=== PATIENT | female | born 1990 | race Hispanic/Latino ===

== ENCOUNTER 2018-02-11 16:35 | Inpatient (IN) | payer BC ==
[~2018-02-11 16:35] MED LIST: Dexamethasone 20 MG/5 ML VIAL ONE; Ondansetron HCl/PF 4 MG/2 ML Vial ONE; PHENYLEPHRINE-NS 100 MCG/ML 10 ML SYRINGE ONE; diphenhydrAMINE 50 MG/ML VIAL ONE; ePHEDrine/0.9% NaCl/PF SYRINGE 50 mg/10 ml ONE
[2018-02-11] MEDS ORDERED: Promethazine HCl 25 MG/ML VIAL IM PRN ×3 (17:38→23:39)
[2018-02-11] MEDS ORDERED: Ondansetron HCl/PF 4 MG/2 ML Vial IVP PRN ×4 (17:38→23:39)
[2018-02-11 17:51] LABS: Hemoglobin 12.1 g/dL (12.0-16.0); Mean Corpuscular HGB CONC 33.4 g/dL (32.0-36.0); Mean Corpuscular Hemoglobin 29.9 pg (27.0-31.0); Mean Corpuscular Volume 89.5 fL (78.0-98.0); Mean Platelet Volume 9.5 fL (7.4-10.4); Platelet Count 243 thou/uL (130-400); RBC Distribution Width 11.2 % (11.5-14.5); Red Blood Cell (RBC) Count 4.04 mill/uL (4.20-5.40); White Blood Cell (WBC) Count 9.9 thou/uL (4.8-10.8)
[2018-02-11] MEDS ORDERED: Bicitra 30 ML UDCUP PO SCH (18:00)
[2018-02-11] MEDS ORDERED: CEFAZOLIN/Water 2 GM/20 ML SYRINGE SLOW IVP SCH (18:00)
[2018-02-11 18:13] LABS: ALT (SGPT) 13 U/L (8-55); AST (SGOT) 20 U/L (5-34); Albumin 3.6 g/dL (3.5-5.0); Alkaline Phosphatase 158 U/L (40-150); Anion Gap 13 mmol/L (10-20); BUN (Urea Nitrogen) 10 mg/dL (7.0-18.7); Bilirubin, Total 0.3 mg/dL (0.2-1.2); Calc. Creatinine Clearance 0 mL/min (70-130); Calcium 9.2 mg/dL (7.8-10.44); Carbon Dioxide 20 mmol/L (22-29); Chloride 108 mmol/L (98-107); Estimated GFR-MDRD 90; Globulin 3.2 g/dL (2.4-3.5); Glucose 70 mg/dL (70-105); Potassium 3.9 mmol/L (3.5-5.1); Protein, Total 6.8 g/dL (6.0-8.3); Sodium 137 mmol/L (136-145)
[2018-02-11 18:17] VITALS: BMI 28.2
[2018-02-11 18:31] LABS: HBSAg Index 0.19 S/CO (0-0.99); Hep B Surf Ag Non-Reactive S/CO (NonReactive); Syphilis Antibody Nonreactive (Nonreactive); Syphilis Antibody Index 0.03 S/CO (<1.00 Non-Reactive)
[2018-02-11] MEDS ORDERED: Oxytocin 10 UNITS/ML VIAL ONE ×2 (18:40→18:42)
[2018-02-11] MEDS ORDERED: Morphine PF 1 MG/ML SYR ONE (18:41)
[2018-02-11] MEDS ORDERED: PHENYLEPHRINE-NS 100 MCG/ML 10 ML SYRINGE ONE (18:42)
[2018-02-11] MEDS ORDERED: Lidocaine 1% PF 5 ML VIAL ONE (18:42)
[2018-02-11] MEDS ORDERED: Dexamethasone 4 mg/ml Vial ONE (18:42)
[2018-02-11] MEDS ORDERED: diphenhydrAMINE 50 MG/ML VIAL ONE (18:42)
[2018-02-11] MEDS ORDERED: Bupivacaine 0.75% W/DEXTROSE 8.25% 2 ML AMP ONE (18:42)
[2018-02-11] MEDS ORDERED: Ondansetron HCl/PF 4 MG/2 ML Vial ONE (18:42)
[2018-02-11] MEDS ORDERED: Ketorolac Tromethamine 30 MG/ML VIAL ONE (18:42)
--- NOTE | 2018-02-11 19:25 | PDOC.LDHP ---
Labor and Delivery H&P Chief complaint: scheduled section, other HPI: 27 y/o at 39 weeks with GHTN and BREECH, now with 2+ protein in the clinic c/w mild preeclamsia. Patient has a vaginal septum and likely two cervical openings based on our best exam information and previous history. No dilated cervical opening is found today. Due to Breech presentation and Cervical findings, primary is chosen as the preferred method of delivery today by the patient. Current gestational age (weeks): 39 Grav: 1 Para: 0 Current complications: hypertension Abnormal US findings: Yes (Heavily Calcified Placenta today) Current medications: none Previous surgical history: none Allergies/Adverse Reactions: Allergies Allergy/AdvReac Type Severity Reaction Status Date / Time No Known Allergies Allergy Verified 02/11/18 17:10 Social history: none - Physical Exam Vital signs reviewed and normal: yes General: NAD Heart: RRR Lungs: CTAB Abdomen: gravid Extremeties: no edema FHT: category 1 - Vaginal Exam cm dilated: 0 Effacement: 50% Station: -3 - Assessment L&D Assessment: scheduled primary section - Plan Plan: admit to L&D, to OR for section
[2018-02-11] MEDS ORDERED: ePHEDrine/0.9% NaCl/PF SYRINGE 50 mg/10 ml ONE (19:39)
[2018-02-11] MEDS ORDERED: Naloxone HCl 0.4 mg/ml Vial IVP PRN ×2 (20:05)
[2018-02-11] MEDS ORDERED: Meperidine HCl/PF 25 MG/ML VIAL SLOW IVP PRN (20:05)
[2018-02-11] MEDS ORDERED: Naloxone HCl 0.4 mg/ml Vial IV PRN (20:05)
[2018-02-11] MEDS ORDERED: Ketorolac Tromethamine 30 MG/ML VIAL IVP PRN (20:05)
[2018-02-11] MEDS ORDERED: Promethazine HCl 25 MG SUPP PR PRN (20:05)
[2018-02-11] MEDS ORDERED: diphenhydrAMINE 50 MG/ML VIAL IVP PRN (20:05)
[2018-02-11] MEDS ORDERED: Eucerin (Mineral Oil/Petrolatum,White) 30 gm Jar TOP PRN (20:05)
[2018-02-11] MEDS ORDERED: HYDROmorphone 2 MG/ML VIAL SLOW IVP PRN (20:05)
[2018-02-11] MEDS ORDERED: Communication Order-Pharmacy FS SCH (20:15)
[2018-02-11] MEDS ORDERED: Misoprostol 200 MCG TAB PR PRN (23:39)
[2018-02-11] MEDS ORDERED: NS / Oxytocin 40 units/1000ml 1,000 ML IV SCH (23:39)
[2018-02-11] MEDS ORDERED: Lactated Ringer's 1,000 ML IV SCH (23:39)
[2018-02-11] MEDS ORDERED: Methylergonovine 0.2 MG/ML VIAL IM PRN (23:39)
[2018-02-11] MEDS ORDERED: diphenhydrAMINE 25 MG CAP PO PRN (23:39)
[2018-02-11] MEDS ORDERED: Bisacodyl 10 MG SUPP PR PRN (23:39)
[2018-02-11] MEDS ORDERED: Lanolin Ointment 7 GM TUBE TOP PRN (23:39)
[2018-02-11] MEDS ORDERED: Simethicone Chewable 80 MG TAB PO PRN (23:39)
[2018-02-11] MEDS ORDERED: HYDROcodone/Acetaminophen 5/325 mg Tablet PO PRN ×2 (23:39)
[2018-02-11] MEDS ORDERED: Zolpidem Tartrate 5 MG TAB PO PRN (23:39)
[2018-02-11] MEDS ORDERED: Docusate Calcium (SURFAK) 240 MG CAP PO SCH (23:45)
[2018-02-11] MEDS ORDERED: Ibuprofen 800 MG TAB PO SCH (23:59)
[2018-02-12] MEDS ORDERED: NIFEdipine XL 30 MG TAB PO SCH (00:15)
[2018-02-12 06:14] LABS: Hemoglobin 10.8 g/dL (12.0-16.0); Mean Corpuscular Volume 90.8 fL (78.0-98.0); Mean Platelet Volume 9.4 fL (7.4-10.4); Platelet Count 210 thou/uL (130-400); RBC Distribution Width 11.1 % (11.5-14.5); Red Blood Cell (RBC) Count 3.59 mill/uL (4.20-5.40); White Blood Cell (WBC) Count 14.3 thou/uL (4.8-10.8)
[2018-02-12] MEDS ORDERED: Varicella virus, LIVE 0.5 ML VIAL SC ONE (09:00)
[2018-02-12] MEDS ORDERED: Measles/Mumps/Rubella 10 MCG/0.5 ML VIAL SC ONE (09:00)
[2018-02-12] MEDS ORDERED: Adacel (T-DAP) 0.5 ML VIAL IM ONE (09:00)
[2018-02-12] MEDS: Docusate Calcium (SURFAK) 240 MG CAP PO SCH ×2 (09:42→22:23)
[2018-02-12] MEDS: NIFEdipine XL 30 MG TAB PO SCH (09:44)
--- NOTE | 2018-02-12 13:14 | PDOC.PP ---
Post Progress Note PO intake tolerated: yes Flatus: yes Ambulation: yes Vital Signs (12 hours) Temp Pulse Resp BP Pulse Ox 02/12/18 12:00 98.0 F 66 20 125/83 02/12/18 09:44 58 L 02/12/18 08:00 99.0 F 58 L 18 126/78 96 02/12/18 05:25 59 L 20 132/83 95 02/12/18 02:30 60 20 136/88 02/12/18 01:37 60 02/12/18 01:30 97.9 F 60 20 152/94 H 97 Weight Weight 175 lb - Physical Examination General: NAD Cardiovascular: no m/r/g Respiratory: clear to auscultation bilaterally Abdominal: + bowel sounds Extremities: negative homans (B) Skin: CS incision dry & intact Neurological: no gross focal deficits Psychiatric: A&Ox3 Result Diagrams: 02/12/18 05:48 02/11/18 17:38 Additional Labs: Post Labs Blood Type B POSITIVE 02/11/18 17:20 Hep Bs Antigen Non-Reactive S/CO (NonReactive) 02/11/18 17:38 - Assessment/Plan Patient is doing very well today post CD day1 now. On Procardia XL 30mg q day.
[2018-02-12] MEDS ORDERED: Sodium Chloride 0.9% 10 ML ONE (14:03)
[2018-02-12] MEDS: Ibuprofen 800 MG TAB PO SCH (22:23)
[2018-02-13] MEDS: Ibuprofen 800 MG TAB PO SCH ×3 (06:20→22:07)
[2018-02-13] MEDS: NIFEdipine XL 30 MG TAB PO SCH (09:21)
[2018-02-13] MEDS: Docusate Calcium (SURFAK) 240 MG CAP PO SCH ×2 (09:21→22:07)
[2018-02-14] MEDS: Ibuprofen 800 MG TAB PO SCH ×2 (06:12→14:08)
[2018-02-14 08:08] VITALS: BP 117/73; TEMP 97.8
[2018-02-14] MEDS: Docusate Calcium (SURFAK) 240 MG CAP PO SCH (09:42)
[2018-02-14] MEDS: NIFEdipine XL 30 MG TAB PO SCH (09:42)
--- NOTE | 2018-02-14 14:37 | OP ---
DATE OF SERVICE: 02/11/2018 PREOPERATIVE DIAGNOSES: Intrauterine at 39 weeks and 0 days with preeclampsia, breech pres entation and a history of a didelphys uterus. POSTOPERATIVE DIAGNOSES: Intrauterine at 39 weeks and 0 days with preeclampsia, breech pre sentation and a history of a didelphys uterus. PROCEDURES: 1. Primary section in breech presentation through Pfannenstiel skin incision. 2. Myomectomy. FINDINGS: Viable female weighing 2599 grams or 5 pounds 12 ounces. Apgars of 8 and 9. Quant itative blood loss at 904. COMPLICATIONS: None. DETAILS OF THE PROCEDURE: The patient was consented and taken back to the operating room where spina l anesthesia was found to be adequate. She was then prepped and draped in the normal sterile fashion . A time out was performed by the entire operative team. The incision was then marked with a marking pen tested using sharp pickups. An incision was then made with a scalpel. The incision was carried through the adipose tissue down to the underlying rectus fascia using both sharp dissection as well as cautery. Once the fascia was identified, it was incised in the midline and then the fascial incis ion was carried through in both lateral directions using sharp as well as cautery dissection techniqu es. Next, the superior aspect of the rectus fascia was grasped with 2 Gerardo clamps which was tented up and the rectus muscles were dissected off using blunt dissection as well as cautery dissection. Similarly, the inferior aspect of the fascial incision was grasped with 2 Gerardo clamps, tented up an d the rectus muscles were dissected off bluntly as well as sharply. Next, the rectus muscles were se parated in the midline and the peritoneum identified. The peritoneum was then carefully grasped with two hemostats and entered sharply. The peritoneal incision was extended superiorly and inferiorly a nd bladder blade was placed in the lower abdomen. At this point, the uterus was identified and the b ladder flap was then developed using pickups with teeth as well as Metzenbaum scissors in both latera l directions. The bladder flap was then dissected downwards using the lace paper machine operator's finger as well as M etzenbaum scissors. The bladder blade was replaced. The lower uterine segment was then identified a nd entered sharply using a clean scalpel. The uterine incision was then dissected downwards until th in layer of muscle remained and this was entered bluntly using a hemostat to avoid any injury to the baby. The uterine incision was then stretched using two fingers in both lateral directions. An amniotomy was performed artificially using a hemostat and the baby was delivered using fundal pres sure in a gentle fashion. Once out, the baby's mouth and nose were bulb suctioned, cord clamped and cut, and the baby was handed to waiting attendants. Next, the uterus was exteriorized, cleared of al l clots and debris and the uterine incision was repaired with #1 Monocryl in a running locking fashio n. A second suture of the same type was used to obtain complete hemostasis at the uterine incision. The bladder flap was reapproximated using 3-0 Monocryl. Next, patient's left and right adnexa were inspected and appeared to be within normal limits. The posterior cul-de-sac was blotted dry and hemo stasis assured. One more look at the uterine incision demonstrated hemostasis. Next, the uterus was replaced back within the abdomen. The peritoneum was reapproximated using 2-0 Monocryl without diff iculty. The rectus muscles were then allowed to come back together and 0 chromic was used to aid in reapproximation of the muscle as necessary. The rectus fascia was then reapproximated in a running f ashion using 0 Vicryl suture. The adipose tissue was then examined and appeared to be well approxima graciela without any obvious separations. Finally, the skin was reapproximated with 3-0 Monocryl on a Clemente th needle without difficulty and Dermabond adhesive was applied to the skin. Once the glue was dry, the drapes were removed and the patient was transferred to an ambulatory bed where she was taken to [facility] awake and in stable condition. Sponge, lap, and needle counts were correct x3. Following closure of the uterus, a thorough inspection was done of the patient's anatomy, which was q uite unusual. 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 The fallopian tube and infundibulopelvic ligament on the left were visualized, but no such structure s were seen on the right. The right horn appeared rudimentary with normal anatomy as expected for a bicornuate uterus. In this case, the patient is thought to have a didelphys uterus based on her othe r anatomy visualized vaginally. The left horn of the uterus was inspected and did have an abnormal s tructure towards its fundal anterior side, which may represent a fibroid. It appeared to be a large solid nodule below the serosal surface. This was completely excised and sent as a myomectomy specime n to pathology for further analysis. This area was sutured closed using a running interrupted 2-0 ch romic suture and then approximately an additional 8 interrupted [id number] sutures to obtain com plete hemostasis. No other fibroids or other lesions were noted. Both ovaries appeared normal. The left horn was then returned to the abdomen and surgery continued as above.
== END 2018-02-14 16:03 | disposition home or self-care (01) | DRG 766 ==
LOC: L&D 16:35 → 3SW 23:12
PROVIDERS: ADMIT Obstetrics & Gynecology; ATTEND Obstetrics & Gynecology
PROC: 10D00Z1 Extraction of Products of Conception, Low, Open Approach (ICD-10-PCS; principal; 2018-02-11)
PROC: 0UB90ZZ Excision of Uterus, Open Approach (ICD-10-PCS; 2018-02-11)
DX: O14.94 Unspecified pre-eclampsia, complicating childbirth (principal); O32.1XX0 Maternal care for breech presentation, not applicable or unspecified; Z3A.39 39 weeks gestation of pregnancy; Z37.0 Single live birth; O34.13 Maternal care for benign tumor of corpus uteri, third trimester; D25.9 Leiomyoma of uterus, unspecified
CPT/HCPCS: 36415; 51702; 80053; 81003; 85027; 86780; 86850; 86900; 86901; 87340; 88305; A4216; J1100; J1200; J1885; J2001; J2274; J2405; J2590; J3490

== ENCOUNTER 2019-06-10 15:52 | Outpatient (CLI) | payer BC | END 2019-06-10 15:53 | disposition home or self-care (01) | LOC: CTENTCT 15:52 | PROVIDERS: ATTEND Otolaryngology Plastic Surgery within the Head & Neck | DX: J32.9 Chronic sinusitis, unspecified (principal) | CPT/HCPCS: 70486 ==

== ENCOUNTER 2019-11-08 06:21 | Outpatient (CLI) | payer BC, OTHER ==
[2019-11-08 16:35] LABS: Hemoglobin 13.4 g/dL (12.0-16.0); Mean Corpuscular HGB CONC 31.9 g/dL (32.0-36.0); Mean Corpuscular Hemoglobin 30.2 pg (27.0-31.0); Mean Corpuscular Volume 94.9 fL (78.0-98.0); Mean Platelet Volume 8.9 fL (7.4-10.4); Platelet Count 270 thou/uL (130-400); RBC Distribution Width 11.1 % (11.5-14.5); Red Blood Cell (RBC) Count 4.43 mill/uL (4.20-5.40); White Blood Cell (WBC) Count 8.3 thou/uL (4.8-10.8)
[2019-11-08 17:26] LABS: BHCG - Serum Negative (NEGATIVE); Pregs Control Background? CLEAR/WHITE (CLR/WHITE); Pregs Control Bar Appear? YES (CONTROL BAR)
[2019-11-09 13:11] LABS: SARS-CoV-2 MS2 Positive; SARS-CoV-2 N Gene Negative; SARS-CoV-2 S Gene Negative; SARS-CoV-2 orf1ab Negative
== END 2019-11-08 06:22 | disposition home or self-care (01) ==
LOC: LABBT 06:21
PROVIDERS: ATTEND Otolaryngology Plastic Surgery within the Head & Neck
DX: Z01.812 Encounter for preprocedural laboratory examination (principal); Z11.59 Encounter for screening for other viral diseases; J32.9 Chronic sinusitis, unspecified; J30.9 Allergic rhinitis, unspecified; J34.3 Hypertrophy of nasal turbinates; J35.1 Hypertrophy of tonsils; J02.9 Acute pharyngitis, unspecified; R06.83 Snoring; R06.5 Mouth breathing
CPT/HCPCS: 84703; 85027; 87635; U0003

== ENCOUNTER 2019-11-10 05:56 | Day surgery (SDC) | payer BC ==
[2019-11-05 10:41] VITALS: BMI 23.3
[2019-11-10] MEDS ORDERED: AFRIN NASAL MIST 15 ML BOT ONE ×2 (06:29→07:10)
[2019-11-10] MEDS ORDERED: Lidocaine 1% w/Epinephrine 1:100K 20 ML VIAL ONE (06:29)
[2019-11-10] MEDS ORDERED: Midazolam HCl 2 mg/2 ml Vial ONE ×2 (08:02→08:18)
[2019-11-10] MEDS ORDERED: Fentanyl 100 MCG/2 ML VIAL ONE ×2 (08:02→09:35)
[2019-11-10] MEDS ORDERED: HYDROcodone/Acetaminophen 5/325 mg Tablet ONE (10:24)
[2019-11-10] MEDS ORDERED: Morphine 2 MG/ML SYRINGE ONE (10:46)
[2019-11-10] MEDS ORDERED: Ondansetron PF 4 MG/2 ML Vial ONE (11:23)
[2019-11-10] MEDS ORDERED: Rocuronium Bromide 10 MG/ML (10ML VIAL) ONE (11:23)
[2019-11-10] MEDS ORDERED: Glycopyrrolate 0.2 MG/ML 5 ML SYRINGE ONE (11:23)
[2019-11-10] MEDS ORDERED: Lidocaine 1% PF 5 ML VIAL ONE (11:23)
[2019-11-10] MEDS ORDERED: PROPOFOL 200 MG/20 ML VIAL ONE (11:23)
[2019-11-10] MEDS ORDERED: Dexamethasone 20 MG/5 ML VIAL ONE (11:23)
--- NOTE | 2019-11-11 09:30 | OP ---
DATE OF PROCEDURE: 11/10/2019 PREOPERATIVE DIAGNOSES: 1. Chronic rhinosinusitis. 2. Bilateral inferior turbinate hypertrophy. 3. Nasal obstruction. POSTOPERATIVE DIAGNOSES: 1. Chronic rhinosinusitis. 2. Bilateral inferior turbinate hypertrophy. 3. Nasal obstruction. PROCEDURES PERFORMED: 1. Bilateral endoscopic sinus surgery, total ethmoidectomy with sphenoidotomies including removal of tissue. 2. Bilateral endoscopic sinus surgery, maxillary antrostomy. 3. Bilateral endoscopic sinus surgery, frontal sinus exploration. 4. Bilateral inferior turbinate submucosal resection. ESTIMATED BLOOD LOSS: 20 mL. COMPLICATIONS: None. ANESTHESIA: GETA. DESCRIPTION OF PROCEDURE: After consent was obtained, the patient was identified, brought to the operating room, and placed on the operating table in the supine position. General endotracheal anesthesia and intravenous access was obtained. Following this, 1% lidocaine with 1:100,000 epinephrine were injected into the middle turbinates and lateral nasal wall bilaterally. Following this, the 0-degree endoscope was used to visualize the middle turbinate and the middle turbinate was medially fractured using a [place] elevator. Following this, the uncinate process was identified and was examined. The uncinate process was noted to be inflamed and laterally displaced bilaterally. Following this, a ball-ended probe was used to anteriorly fracture the uncinate process bilaterally. Following this, the 0-degree microdebrider and the up-biting Blakesley forceps were used to remove the uncinate process bilaterally. Following this, the natural maxillary sinus ostia was identified with the 0-degree endoscope and the ball-ended probe. The natural maxillary ostia was then widened using a 40-degree microdebrider and the straight Blakesley forceps bilaterally. Following this, the ethmoidal bulla was identified bilaterally. A 0-degree microdebrider was used to puncture the ethmoidal bulla on its medial and inferior aspect bilaterally. Following this, the 0-degree microdebrider and the up-biting Blakesley forceps were used to remove the ethmoidal bulla. Following this, the grand lamella was identified posterior to this area and was punctured using the 0-degree microdebrider bilaterally. Following this, the ethmoidal cells were opened from the posterior to the anterior using the 0-degree microdebrider, the 40-degree microdebrider and the up-biting Blakesley forceps bilaterally. Following this, the 45-degree endoscope and the 40-degree microdebrider blade were used to further remove the anterior ethmoidal cells to the level of the frontal sinus recess bilaterally. Following this, the 0-degree microdebrider was used to puncture the sphenoid sinus ostia bilaterally and widened the sphenoid sinus ostia in a medial and inferior direction. Polypoid tissue and necrotic bone were removed from this area. Following this, the 45-degree endoscope and the 40-degree microdebrider blade were used to open the frontal sinus ostia bilaterally. Following this, the inferior turbinate was punctured on its anterior inferior aspect with the submucosal microdebrider and submucosal resection was performed of the anterior and inferior portions of the inferior turbinates bilaterally. Following this, the nasal cavity was irrigated and a NasoPore packing was placed within the middle meatus bilaterally. The patient tolerated the procedure well. Job ID: [id number]
== END 2019-11-10 12:00 | disposition home or self-care (01) ==
LOC: SDC 05:56
PROVIDERS: ATTEND Otolaryngology Plastic Surgery within the Head & Neck
PROC: 09BX8ZZ Excision of Left Sphenoid Sinus, Via Natural or Artificial Opening Endoscopic (ICD-10-PCS; principal; 2019-11-10)
PROC: 09TL8ZZ Resection of Nasal Turbinate, Via Natural or Artificial Opening Endoscopic (ICD-10-PCS; principal; 2019-11-10)
PROC: 099Q8ZZ Drainage of Right Maxillary Sinus, Via Natural or Artificial Opening Endoscopic (ICD-10-PCS; principal; 2019-11-10)
PROC: 09TV8ZZ Resection of Left Ethmoid Sinus, Via Natural or Artificial Opening Endoscopic (ICD-10-PCS; principal; 2019-11-10)
PROC: 09BW8ZZ Excision of Right Sphenoid Sinus, Via Natural or Artificial Opening Endoscopic (ICD-10-PCS; principal; 2019-11-10)
PROC: 099R8ZZ Drainage of Left Maxillary Sinus, Via Natural or Artificial Opening Endoscopic (ICD-10-PCS; principal; 2019-11-10)
PROC: 099T8ZZ Drainage of Left Frontal Sinus, Via Natural or Artificial Opening Endoscopic (ICD-10-PCS; principal; 2019-11-10)
PROC: 09TU8ZZ Resection of Right Ethmoid Sinus, Via Natural or Artificial Opening Endoscopic (ICD-10-PCS; principal; 2019-11-10)
PROC: 099S8ZZ Drainage of Right Frontal Sinus, Via Natural or Artificial Opening Endoscopic (ICD-10-PCS; principal; 2019-11-10)
DX: J32.9 Chronic sinusitis, unspecified (principal); J34.3 Hypertrophy of nasal turbinates; J34.89 Other specified disorders of nose and nasal sinuses; J30.1 Allergic rhinitis due to pollen; J30.2 Other seasonal allergic rhinitis; J30.81 Allergic rhinitis due to animal (cat) (dog) hair and dander; I10 Essential (primary) hypertension; F17.200 Nicotine dependence, unspecified, uncomplicated; Z79.899 Other long term (current) drug therapy
CPT/HCPCS: J1100; J2001; J2250; J2270; J2405; J2704; J3010

== ENCOUNTER 2020-02-11 05:58 | Outpatient (CLI) | payer BC, OTHER ==
[2020-02-11 16:25] LABS: BHCG - Serum Negative (NEGATIVE)
[2020-02-11 16:26] LABS: Pregs Control Background? CLEAR/WHITE (CLR/WHITE); Pregs Control Bar Appear? YES (CONTROL BAR)
[2020-02-12 14:48] LABS: SARS-CoV-2 MS2 Positive; SARS-CoV-2 N Gene Negative; SARS-CoV-2 S Gene Negative; SARS-CoV-2 by NAA Not Detected (NotDetected); SARS-CoV-2 orf1ab Negative
== END 2020-02-11 05:59 | disposition home or self-care (01) ==
LOC: LABBT 05:58
PROVIDERS: ATTEND Otolaryngology Plastic Surgery within the Head & Neck
DX: Z01.812 Encounter for preprocedural laboratory examination (principal); J34.89 Other specified disorders of nose and nasal sinuses; R06.81 Apnea, not elsewhere classified; J35.01 Chronic tonsillitis; J35.1 Hypertrophy of tonsils; J35.2 Hypertrophy of adenoids; R06.83 Snoring; K13.79 Other lesions of oral mucosa; J35.8 Other chronic diseases of tonsils and adenoids; Z20.828 Contact with and (suspected) exposure to other viral communicable diseases
CPT/HCPCS: 84703; 85014; 87635; U0003

== ENCOUNTER 2020-02-16 06:12 | Day surgery (SDC) | payer BC ==
[2020-02-15 12:48] VITALS: BMI 24.2
[2020-02-16] MEDS ORDERED: Fentanyl 250 MCG/5 ML VIAL ONE (06:42)
[2020-02-16] MEDS ORDERED: Lidocaine 4% Topical Sol 50 ML BOT ONE (06:43)
[2020-02-16] MEDS ORDERED: Ferric Subsulfate (ASTRINGYN) 8 GM VIAL ONE (06:48)
[2020-02-16] MEDS ORDERED: Midazolam HCl 2 mg/2 ml Vial ONE (07:18)
[2020-02-16] MEDS ORDERED: Acetaminophen 500 MG TAB ONE (07:19)
[2020-02-16] MEDS ORDERED: Lidocaine 1% w/Epinephrine 1:100K 20 ML VIAL ONE (07:44)
[2020-02-16] MEDS ORDERED: methylPREDNISolone Acetate 40 mg/ml Vial ONE (07:47)
[2020-02-16] MEDS ORDERED: Fentanyl 100 MCG/2 ML VIAL ONE (08:52)
[2020-02-16] MEDS ORDERED: Hydrocodone-Acetamin 15 ML UDCUP ONE (09:51)
[2020-02-16] MEDS ORDERED: Dexamethasone 20 MG/5 ML VIAL ONE (14:43)
[2020-02-16] MEDS ORDERED: PROPOFOL 200 MG/20 ML VIAL ONE (14:43)
[2020-02-16] MEDS ORDERED: Ondansetron PF 4 MG/2 ML Vial ONE (14:43)
[2020-02-16] MEDS ORDERED: Lidocaine 1% PF 5 ML VIAL ONE (14:43)
[2020-02-16] MEDS ORDERED: EPHEDRINE 25 MG/5 ML SYRINGE ONE (14:43)
--- NOTE | 2020-02-17 10:53 | OP ---
DATE OF PROCEDURE: 02/16/2020 PREOPERATIVE DIAGNOSES: 1. . 2. Chronic adenotonsillitis. 3. Adenotonsillar hypertrophy. 4. . 5. Bilateral nasal valve collapse. 6. Nasal obstruction. POSTOPERATIVE DIAGNOSES: 1. . 2. Chronic adenotonsillitis. 3. Adenotonsillar hypertrophy. 4. . 5. Bilateral nasal valve collapse. 6. Nasal obstruction. PROCEDURES PERFORMED: 1. Bilateral repair . 2. Tonsillectomy and adenoidectomy. 3. Uvulectomy. ESTIMATED BLOOD LOSS: . COMPLICATIONS: None. ANESTHESIA: GETA. PROCEDURE IN DETAIL: After consent was obtained, the patient was identified, brought to the operating room, and placed on the operating table in the supine position. General endotracheal anesthesia and intravenous access was obtained and we proceeded with positioning the patient for oropharyngeal surgery. Oropharyngeal exposure was obtained with a Uriel-Joss mouth gag after a head drape was placed and secured with a towel clip. The Uriel-Joss mouth gag was then suspended from the Calix tray and palatal elevation was achieved with a red rubber catheter. The right tonsil was addressed first. We used a curved Allis to grasp the tonsil and retract it medially as an anterior pillar incision was made. The retrotonsillar fascial plane was then established and blunt dissection was performed with the suction cautery. Blood vessels were anticipated, identified, and cauterized as they were encountered. Ultimately, dissection was carried to the posterior tonsillar pillar mucosa which was incised hemostatically, as well as the base of tongue connection. The tonsil was then passed off as a specimen and bleeding points within the tonsillar bed were cauterized under direct visualization. We subsequently turned our attention to the contralateral side, where using a similar technique, a near identical procedure was performed. Again, the tonsil was grasped and retracted medially with a curved Allis. The retrotonsillar fascial plane was established and while the anterior pillar was retracted medially, the hemostatic blunt dissection of the tonsil with a suction cautery was performed with blood vessels anticipated, identified, and cauterized as they were encountered. Again, dissection continued to the base of tongue and posterior tonsillar pillar mucosa which was incised in a hemostatic fashion. The tonsillar beds were then carefully inspected and bleeding points were identified and cauterized with a suction cautery. After this portion of the procedure, hemostasis was completely obtained. Under direct mirror visualization, we visualized the adenoid pad. Under direct mirror visualization, we removed the bulk of the adenoid tissue with the adenoid curette. We then packed the nasopharynx for an appropriate period of time with Trav-Synephrine saturated tonsillar sponges. After a period of observation, we removed the pack. Under indirect mirror visualization, we obtained hemostasis and vaporization of residual adenoid tissue with electrocautery. The patient's oral cavity was copiously irrigated with iced saline and subsequently suctioned. After completion of the procedure, the nasal cavity and oropharynx were irrigated and suctioned as were the gastric contents. The patient was then awakened and transferred to the recovery room where the patient remained in stable condition prior to discharge to Day Stay. hemostasis was obtained and interrupted 3-0 chromic gut sutures were used to reapproximate the mucosa. Following this, cool saline was irrigated through the oral cavity . Following this, a small incision was made in a transcartilaginous approach to the lateral nasal wall through an endonasal incision with an 11 blade and a graft was implanted and was placed in a subperiosteal pocket overlying the nasal bones and extending inferiorly to support the lower lateral cartilages bilaterally. The incision site was then closed using 5-0 chromic gut stitch bilaterally. The patient tolerated the procedure well. Job ID: [id number]
== END 2020-02-16 11:00 | disposition home or self-care (01) ==
LOC: SDC 06:12
PROVIDERS: ATTEND Otolaryngology Plastic Surgery within the Head & Neck
DX: J35.03 Chronic tonsillitis and adenoiditis (principal); J34.89 Other specified disorders of nose and nasal sinuses; M95.0 Acquired deformity of nose; K13.79 Other lesions of oral mucosa; J35.8 Other chronic diseases of tonsils and adenoids; J32.9 Chronic sinusitis, unspecified; J34.3 Hypertrophy of nasal turbinates; J30.9 Allergic rhinitis, unspecified; Z79.899 Other long term (current) drug therapy
CPT/HCPCS: 88302; 88304; J1100; J2250; J2405; J2704; J2920; J3010

== ENCOUNTER 2020-05-02 15:42 | Outpatient (CLI) | payer BC ==
--- NOTE | 2020-05-02 16:40 | ULT ---
Exam: Transabdominal and endovaginal pelvic ultrasound HISTORY:Uterine anomaly. Duplicate cervix and endometrium. COMPARISON: None TECHNIQUE: Transabdominal and endovaginal imaging of the pelvis is performed. Ovaries are interrogate d with grayscale, color flow, Doppler imaging and spectral wave form analysis FINDINGS: Uterus: There appear to be 2 separate cervix and 2 separate endometrial stripes. Uterus measurin.8 x 8.1 x 5.0 cm. Endometrium: Left endometrium measures 1.7 cm. Right endometrium measures 1.1 cm. Both endometrium gonzalez ve a homogeneous echotexture. Free fluid: None Ovaries: Neither ovary is appreciated. Free fluid: None IMPRESSION: 1. Duplicated cervix and endometrium. There are sonographic evidence for didelphic uterus. Better geetha luation of the anatomy with pelvic MRI.
== END 2020-05-02 15:43 | disposition home or self-care (01) ==
LOC: BICULT 15:42
PROVIDERS: ATTEND Family Medicine
DX: Q51.9 Congenital malformation of uterus and cervix, unspecified (principal)
CPT/HCPCS: 76856